=== PATIENT | male | born 1955 | race Two or more races ===

== ENCOUNTER 2020-12-11 09:15 | Inpatient (IN) | payer OTHER ==
[~2020-12-11] VITALS: Ht 167.6 cm; Wt 59.4 kg
[2020-12-15] MEDS ORDERED: LATANOPROST2.5 ML (13:20)
[2020-12-15] MEDS ORDERED: HYDROCORTISONE30 G4 (13:20)
[2020-12-18] MEDS ORDERED: INTESTINEX680 M1 PO (10:13)
[2020-12-18] MEDS ORDERED: HYOSCYAMINE0.125 M1 SL (10:13)
[2020-12-18] MEDS ORDERED: ULTRACET PO (10:14)
== END 2020-12-18 11:47 | disposition home or self-care (01) | DRG 331 ==
LOC: EDSTATUS 09:15 → ADM 09:15 → O/R 12-15 06:32 → SURH 12-15 06:32
PROVIDERS: ADMIT Surgery; ATTEND Surgery
DX: K57.32 Diverticulitis of large intestine without perforation or abscess without bleeding (principal); D64.9 Anemia, unspecified; Z20.822 Contact with and (suspected) exposure to COVID-19